=== PATIENT | female | born 1935 | race Caucasian/White ===

== ENCOUNTER 2019-01-09 10:46 | Observation (INO) | payer MEDICARE, SELFPAY ==
[2019-01-09] VITALS (48 sets, daily range): BP systolic 94–150; BP diastolic 33–94; PULSE 49–104; RESP 10–31; TEMP 36.5–36.8; O2SAT 86–99
--- NOTE | 2019-01-09 10:54 | NUR.NOTE ---
Nursing Note: pt is visiting from [place] history of dementia. ems states that PT was at a dinner in [facility] when she passed out for approximately 5-10 seconds when PT came to pt vomited several times and vomited in ambulance with EMS. ems state that vitals have been stable upon arrival BP 100/45 map 58. pt believes it is December 2017 ems states this is baseline for PT
--- NOTE | 2019-01-09 11:01 | DI.CT_ITS ---
SYMPTOM/DIAGNOSIS: SYNCOPE NONCONTRAST HEAD CT: A noncontrast cranial CT was performed. There is severe generalized cerebral atrophy. No evidence of acute intracranial hemorrhage, mass effect or midline shift. Right lacunar infarct noted. The paranasal sinuses and mastoid air cells appear clear as visualized. The orbital and temporal bone structures appear intact. CONCLUSION: No evidence of acute intracranial process.
[2019-01-09] MEDS: Normal Saline 1,000 ML 1000 ML IV (11:21)
--- NOTE | 2019-01-09 11:22 | W.ED.GENAD ---
Discharge Plan Disposition Patient Disposition: [facility] INPATIENT Condition: Fair Discharge Details Chief Complaint: Dizzy/Sync Clinical Impression: Generalized weakness, Dizziness Admit Date/Time: 01/09/19 17:00 Admit Provider: Victor Hugo Lazaro Attending Provider: Victor Hugo Lazaro Primary Care Provider: Penelope,Local ED Provider: Victor M Jaime Discharge Data Discharge Date/Time-TO BE ENTERED AT DEPARTURE: 01/09/19 18:01 Medical Decision Making Patient presenting to the emergency department for chief complaint of dizziness and near syncope. Patient was at a restaurant and stood up from the kaur to go to the restroom when she fell down. Patient remembers the event but states afterwards she felt significant amount of dizziness and nausea and vomiting. Patient denies any chest pain, headache, shortness of breath. Patient has history of dementia but is alert and oriented to person and place. Review of vital signs does show that patient is hypotensive and O2 sat of 92% but otherwise not tachycardic not febrile, not tachypneic. Physical exam shows normal cardiac exam, normal respiratory exam, cranial nerves II through XII are intact with no abnormalities noted. Assessment of HEENT does show right cerumen impaction and left ear with a foreign body that appears hair-like directly in contact with the TM. Patient has no focal weakness or neurological deficits noted. Differential diagnosis to include cardiac dysrhythmia, PE, CVA, peripheral vertigo. Plan to check EKG, labs, and CTA head. Pending results patient given IV fluids, meclizine, and Zofran was already given by EMS. Review of CT imaging with radiologist shows no acute findings except for atrophy. Labs reviewed and show some signs of dehydration so further fluids were given, nondiagnostic CBC, negative d-dimer, urinalysis with no signs of infection and blood and RBCs most likely secondary to catheterization. Patient was given additional meclizine due to continued symptoms along with feeding patient. Patient ate and had meclizine and at rest states asymptomatic but as soon as patient attempted to ambulate staffing manager state stated severely unsteady on feet. Due to this I do feel that patient needs to be admitted. ECG Data Attestation: I personally reviewed and interpreted this ECG (s) as follows: Prior ECG tracings: not available for review Interpretation: EKG reviewed with attending physician Dr. Bender and shows rate of 61, sinus rhythm, normal axis, no prolonged QT, no STEMI. HPI General Mode of arrival: EMS. Date/Time Provider Initiated Documentation: 01/09/19 10:51. Limitations to Documentation: no limitations. Information obtained by: patient, family and RN notes reviewed. History of Present Illness 83 year old F presents to the emergency department with the chief complaint of Dizziness, near syncope, Quality is described as other (Denies pain or discomfort), Patient started experiencing this hour(s) (1) and it has been intermittent. No relieving factors improve symptom(s), Other factors that worsen symptoms (Position change) . Patient notes nausea/vomiting. Patient did receive the following treatments prior to arrival, none Related Data Home Medications Medication Instructions Recorded Confirmed rivaroxaban [Xarelto] 20 mg PO DAILY 01/09/19 01/09/19 rivastigmine tartrate 1.5 mg PO BID 01/09/19 01/09/19 Allergies Allergy/AdvReac Type Severity Reaction Status Date / Time cephalexin Allergy Unverified 01/09/19 20:39 levofloxacin [From Levaquin] Allergy Unverified 01/09/19 20:39 meperidine [From Demerol] Allergy Unverified 01/09/19 20:39 naproxen [From Aleve] Allergy Unverified 01/09/19 20:39 sulfamethoxazole Allergy Unverified 01/09/19 20:39 [From Septra] trimethoprim [From Septra] Allergy Unverified 01/09/19 20:39 advair hfa Allergy Uncoded 01/09/19 20:39 General Stated Complaint: Dizzy/Sync LOWELL: 3 Review of Systems Constitutional Denies body ache(s), Denies chills, Denies fever(s) and Denies headache(s) Eyes Denies change in vision ENT Reports dizziness and Denies headache(s) Cardiovascular Denies chest pain, Denies syncope and Denies dyspnea Respiratory Denies dyspnea Gastrointestinal Reports nausea and Reports vomiting Neurologic Reports as per HPI, Reports dizziness, Denies syncope, Denies headache(s) and Denies sensory deficit PFSH Medical History Anxiety (Chronic) DVT (deep venous thrombosis) (Chronic) Dyslipidemia (Acute) Frequent falls (Acute) H/O: hysterectomy (Chronic) Hx of head injury (Acute) Left elbow pain (Acute) Memory loss (Acute) Olecranon bursitis of left elbow (Acute) Osteopenia (Acute) Stress incontinence in female (Acute) Vitamin B 12 deficiency (Acute) Vitamin D deficiency (Acute) Social History Smoking/Tobacco Use Status: Never Alcohol Intake: current Alcohol Intake frequency: holidays/special occasions only Drug use: Never Substance use type: does not use Do you feel safe at home: Yes Do you feel safe in your relationship?: Yes Exam Const General: cooperative, healthy appearing, no acute distress and well groomed Orientation: alert, awake and oriented x3 HENMT Head: normal to inspection Ears: hearing grossly normal bilaterally, TM abnormal other (Hair or foreign body present again TM) and unable to visualize TM on the right (Cerumen impaction) Mouth: oral mucosae normal, lip normal, tongue normal and moist mucous membranes Throat: posterior oropharynx normal, tonsils normal and uvula midline Eyes Visual Vieira: normal visual vieira by confrontation Alignment and Position: alignment normal Periorbital: periorbital findings normal Eyelids: eyelids normal Sclera: sclerae normal Cornea: corneas normal Pupils: PERRL EOM: EOM intact bilaterally Neck Neck: normal visual inspection, full ROM, no lymphadenopathy and no meningeal signs Resp Effort & Inspection: normal respiratory effort and able to speak in complete sentences Auscultation: clear to auscultation bilaterally Cardio Rate: regular rate Rhythm: regular rhythm Heart Sounds: S1 normal and S2 normal Neuro General: alert, awake, oriented x3, gait normal, tone normal, moves all extremities, normal light touch, pain and propioception, no focal motor deficits, CN's II-XI intact bilaterally, not confused, [place] (Slight horizontal nystagmus to the left) and other (Nondiagnostic hints exam) Cognition: normal cognition Speech: speech normal Motor: muscle tone normal throughout, no pronator drift, no movement abnormalities noted and no fasciculations Sensory Exam: no sensory deficits noted Coordination: [id number] test normal, krwc-[id number] test normal and rapid alternating movement UE normal Course Vital Signs Temperature 36.5 C 01/09/19 10:57 Pulse 66 01/09/19 10:57 Respiratory Rate 16 01/09/19 10:57 Blood Pressure 100/45 L 01/09/19 10:57 Pulse Oximetry 92 L 01/09/19 10:57 Temperature 36.5 C 01/09/19 10:57 Temperature Source Skin 01/09/19 10:57 Pulse 66 01/09/19 10:57 Respiratory Rate 16 01/09/19 10:57 Blood Pressure 100/45 L 01/09/19 10:57 Blood Pressure Position Supine 01/09/19 10:57 Pulse Oximetry 92 L 01/09/19 10:57 Oxygen Delivery Method Room Air 01/09/19 10:57 Oxygen Flow Rate 0 01/09/19 10:57 Pain Level 0 01/09/19 10:57
[2019-01-09 11:35] LABS: Abs Immature Grans 0.02 k/cumm (0.0-0.09); Absolute Basophil Count 0.01 k/cumm (0.0-0.2); Absolute Eosinophil Count 0.06 k/cumm (0.0-0.7); Absolute Lymphocyte Count 0.65 k/cumm (1.2-3.4); Absolute Monocyte Count 0.43 k/cumm (0.11-0.7); Basophils % 0.2; Eosinophils % 1.5; HCT 37.2 % (36.0-46.0); HGB 12.1 g/dL (12.0-15.5); Immature Grans % 0.5; Mean Corp. HGB Concentration 32.5 g/dL (32.0-36.0); Mean Corpuscular Hemoglobin 30.6 pg (27.0-33.0); Mean Corpuscular Volume 93.9 fL (80-95); Mean Platelet Volume 10.3 fL (8.0-11.0); Monocytes % 10.6; Neutrophils % 71.2; Platelet Count 172 x1000/uL (130-400); RBC 3.96 m/cumm (4.00-5.20); RBC Distribution Width 13.2 % (11.7-14.6); White Blood Cell Count 4.07 k/cumm (4.4-10.8)
[2019-01-09] MEDS: Ondansetron O.D.T. 4 MG TABEF PO (11:40)
[2019-01-09 11:55] LABS: ALT 17 U/L (12-78); AST 16 U/L (15-37); Albumin 2.9 g/dL (3.4-5.0); Alkaline Phosphatase 63 U/L (46-116); Anion Gap 11.4 mmol/L (3-11); BUN 28 mg/dL (7-18); Bilirubin, Total 0.3 mg/dL (0.2-1.0); CO2 25.6 mmol/L (21.0-32.0); CREATININE 0.94 mg/dL (0.55-1.02); Calcium 8.6 mg/dL (8.5-10.1); Chloride 103 mmol/L (98-107); Estimated GFR 57.01 (mL/min/1.73m2); Glucose 174 mg/dL (70-100); Magnesium 1.9 mg/dL (1.8-2.4); Potassium 3.8 mmol/L (3.5-5.1); Sodium 140 mmol/L (136-145); Total Protein 6.1 g/dL (6.4-8.2)
[2019-01-09 11:56] LABS: Troponin I < 0.05 ng/mL (0.00-0.06)
[2019-01-09 12:05] LABS: D-Dimer 437 ng/mlFEU (<500)
[2019-01-09] MEDS: Meclizine 12.5 MG TAB PO ×2 (12:15→14:25)
--- NOTE | 2019-01-09 13:05 | NUR.NOTE ---
Nursing Note: ears flushed with 700 cc NS large deposit of ear wax removed from light ear and several small deposits of ear was as well as hair from left ear. large 3 sm chunk on right ear removed. earwax was black and hard to the point it clinked when dropped on a metal tray
--- NOTE | 2019-01-09 14:45 | NUR.NOTE ---
Nursing Note: pt tolerated straight catheterization well. 300 mL clear yellow urine drained. pt set up for lunch
[2019-01-09 14:50] LABS: Bilirubin Negative (Negative); Blood Trace-intact (Negative); Clarity Clear (Clear); Glucose Negative (Negative); Ketones Trace mg/dL (Negative); Leukocyte Esterase Negative (Negative); Nitrite Negative (Negative); Specific Gravity 1.025 (1.005-1.025); Urobilinogen 0.2 EU/dL (Up TO 0.2); pH 5.5 (5-8)
[2019-01-09 15:06] LABS: WBC 0-2 HPF (0-5)
[2019-01-09 15:07] LABS: Bacteria Negative HPF (Negative); Crystals Negative HPF (Negative); Epithelial Cells Negative HPF (Negative); Mucus Moderate (Negative)
[2019-01-09 15:08] LABS: C & S Indicated? No; Casts 5-10 Hyaline LPF (Negative)
[2019-01-09 16:25] LABS: Troponin I < 0.05 ng/mL (0.00-0.06)
--- NOTE | 2019-01-09 18:23 | NUR.NOTE ---
Nursing Note: at 1400 was informed that would most likely be staying overnight at [facility] or or another facility however at the current time we could not give a confidant answer as to weather or not it would be our facility or a deferent one. at time plan was made for PT being admitted to [facility] of PT was missing RN made several attempts to contact and aske PT several times for information on anyone to contact to inform that PT would be admitted to [facility] RN was unable to make contact. ED secretary administrative assistant was asked to attempt to make contact secretary administrative assistant was unable to make contact with family members of PT waiting room was searched for of PT unable to local attempts were made to reach for approximately 3 hrs. medical floor charge Pattie peterson was notified of current situation and inability to reach spouse or family members. rn will continue to make attempt to contact family post discharge of PT
--- NOTE | 2019-01-09 18:32 | NUR.NOTE ---
Nursing Note: number on PTs chart [phone] was contacted 10 times to attempt to reach family member this is the number in the patients chart under family member this is also listed as the patients home number pt was asked several times if she knew any one elses number PT was unable to provide any numbers ED paralegal legal secretary will continue to attempt to contact this number
[2019-01-09] MEDS: Normal Saline 1,000 ML 75 ML IV (18:50)
--- NOTE | 2019-01-09 18:53 | W.PM.HP.N ---
Date of service: 01/09/19 Time of Service: 18:53 Assessment and Plan (1) Fall: Current visit: Yes Status: Acute Reportedly fell at restaurant when getting up to use the bathroom. She does not recall the events. She does not have any family present. It is unclear if this was a near syncopal event. Her ER note indicates that she had some nausea and vomiting. Differential diagnoses include vertigo, dehydration, CVA/TIA, versus other. She had a head CT that did not show an acute process. Physical therapy has been consulted to assess for vertigo and her risk for falls. Assess lipid panel in the morning. Continue to monitor. Consider further testing for CVA/TIA. Monitor on telemetry for cardiac arrhythmia. Nursing to obtain orthostatic vital signs. Assess cerumen impaction and possible need for irrigation. Consult PT to assess for vertigo and assess need for ambulatory devices. (2) DVT prophylaxis: Current visit: Yes Status: Acute Continue home Xarelto, as she has had a DVT in the past. (3) Discharge planning issues: Current visit: Yes Status: Acute She is a full code. Nursing is working on obtaining notes from her primary care provider as she is not from the area, she lives in [place]. She is visiting her son at [facility]. This case was discussed with Dr. Lazaro he was in agreement. History of Present Illness Chief Complaint: Syncopal episode Narrative: Sveta Valle is an 83 year old female with a past medical history significant for dementia and DVT on xarelto. She reportedly was eating at a restaurant today when she got up and fell to the ground. She was reportedly dizzy with nausea and vomiting. In the ED, she was found to be hypotensive and had an oxygen saturation of 92% on room air. She was found on exam to have a cerumen impaction of the left ear. She had no focal neurological deficits. She had a CT head which showed no acute abnormality. She appeared mildly dehydrated by labs with an elevated BUN of 28, creatinine of 0.94. She was given IV fluids. Her CBC was unremarkable, negative d-dimer, urinalysis not suspicious for infection. She was given meclizine with improvement of her symptoms at rest, however, when she attempted to ambulate, she was very unsteady. She is admitted to the floor for further evaluation and management. The patient has dementia and is able to state where she is, the date and her date and name, however, she was concerned about her not being able to find her due to moving to a different hospital after he left. She is a poor historian. She is not able to give a clear history. She denies current dizziness, headaches, chest pain/pressure, palpitations, shortness of breath, coughing, wheezing, nausea, vomiting, diarrhea, constipation. She reports eating and drinking normally today, however, she denies that she went out to a restaurant today even though her family reported that she fell at a restaurant. She denies any dysuria or hematuria. She first stated that she does not take any regular medications, however, with prompting, she was able to state that she takes 2 different medications. According to records, she takes Xarelto and Rivastigmine. Review of Systems Review of Systems All systems reviewed & are unremarkable except as noted in HPI and below PFSH Medical History Anxiety (Chronic) DVT (deep venous thrombosis) (Chronic) Dyslipidemia (Acute) Frequent falls (Acute) H/O: hysterectomy (Chronic) Hx of head injury (Acute) Left elbow pain (Acute) Memory loss (Acute) Olecranon bursitis of left elbow (Acute) Osteopenia (Acute) Stress incontinence in female (Acute) Vitamin B 12 deficiency (Acute) Vitamin D deficiency (Acute) Social History Smoking/Tobacco Use Status: Never Alcohol Intake: current Alcohol Intake frequency: holidays/special occasions only Drug use: Never Substance use type: does not use Do you feel safe at home: Yes Do you feel safe in your relationship?: Yes Meds Home Medications Medication Instructions Recorded Confirmed Type rivaroxaban [Xarelto] 20 mg PO DAILY 01/09/19 01/09/19 History rivastigmine tartrate 1.5 mg PO BID 01/09/19 01/09/19 History Allergies Allergy/AdvReac Type Severity Reaction Status Date / Time cephalexin Allergy Unverified 01/09/19 20:39 levofloxacin [From Levaquin] Allergy Unverified 01/09/19 20:39 meperidine [From Demerol] Allergy Unverified 01/09/19 20:39 naproxen [From Aleve] Allergy Unverified 01/09/19 20:39 sulfamethoxazole Allergy Unverified 01/09/19 20:39 [From Septra] trimethoprim [From Septra] Allergy Unverified 01/09/19 20:39 advair hfa Allergy Uncoded 01/09/19 20:39 Exam Narrative Exam Narrative: General: Elderly female, appears stated age, alert and oriented x3, forgetful and poor historian. HEENT: Normocephalic, atraumatic, pupils equal round reactive to light, extraocular movements intact, mucous membranes moist. Neurological: Nonfocal. Neck: Supple, no JVD. Cardiovascular: Heart has regular rate and rhythm, no murmur appreciated. Respiratory: Respirations even and unlabored, lung sounds with rales to right base, no wheezing. GI: Normoactive bowel sounds x4 quadrants, abdomen soft, nondistended, nontender on palpation. Extremities: Scattered bruising on bilateral lower extremities, no clubbing, cyanosis or edema. No calf swelling or tenderness. Pedal pulses palpable bilaterally. Moves all 4 extremities equally. Results Labs : 01/10/19 06:30 01/10/19 06:30 Laboratory Results - last 24 hr 01/09/19 01/09/19 01/09/19 11:20 11:20 11:20 WBC 4.07 L RBC 3.96 L Hgb 12.1 Hct 37.2 MCV 93.9 MCH 30.6 MCHC 32.5 RDW 13.2 Plt Count 172 MPV 10.3 Immature Gran % 0.5 Neutrophils % 71.2 Lymphocytes % 16.0 Monocytes % 10.6 Eosinophils % 1.5 Basophils % 0.2 Absolute Neutrophils 2.90 Absolute Lymphocytes 0.65 L Absolute Monocytes 0.43 Absolute Eosinophils 0.06 Absolute Basophils 0.01 D-Dimer 437 Sodium 140 Potassium 3.8 Chloride 103 Carbon Dioxide 25.6 Anion Gap 11.4 H BUN 28 H Creatinine 0.94 Estimated GFR/1.73 m2 57.01 Glucose 174 H Calcium 8.6 Magnesium 1.9 Total Bilirubin 0.3 AST 16 ALT 17 Alkaline Phosphatase 63 Troponin I < 0.05 Total Protein 6.1 L Albumin 2.9 L Urine Color Urine Clarity Urine pH Ur Specific [place] Urine Protein Urine Ketones Urine Blood Urine Nitrite Urine Bilirubin Urine Urobilinogen Ur Leukocyte Esterase Urine RBC Urine WBC Ur Epithelial Cells Urine Crystals Urine Bacteria Urine Casts Urine Mucus Ur Culture Indicated? Urine Glucose 01/09/19 01/09/19 14:39 15:50 WBC RBC Hgb Hct MCV MCH MCHC RDW Plt Count MPV Immature Gran % Neutrophils % Lymphocytes % Monocytes % Eosinophils % Basophils % Absolute Neutrophils Absolute Lymphocytes Absolute Monocytes Absolute Eosinophils Absolute Basophils D-Dimer Sodium Potassium Chloride Carbon Dioxide Anion Gap BUN Creatinine Estimated GFR/1.73 m2 Glucose Calcium Magnesium Total Bilirubin AST ALT Alkaline Phosphatase Troponin I < 0.05 Total Protein Albumin Urine Color Yellow Urine Clarity Clear Urine pH 5.5 Ur Specific [place] 1.025 Urine Protein Negative Urine Ketones Trace H Urine Blood Trace-intact H Urine Nitrite Negative Urine Bilirubin Negative Urine Urobilinogen 0.2 Ur Leukocyte Esterase Negative Urine RBC 3-5 H Urine WBC 0-2 Ur Epithelial Cells Negative Urine Crystals Negative Urine Bacteria Negative Urine Casts 5-10 hyaline Urine Mucus Moderate Ur Culture Indicated? No Urine Glucose Negative Last Vital Signs Temp 36.8 C 01/09/19 18:20 Pulse 97 H 01/09/19 18:20 Resp 17 01/09/19 18:20 BP 147/64 H 01/09/19 18:20 Pulse Ox 97 01/09/19 18:20
[2019-01-09] MEDS: Rivastigmine 1.5 MG CAP PO (22:14)
--- NOTE | 2019-01-09 23:17 | DI.RAD_ITS ---
SYMPTOM/DIAGNOSIS: RALES ON EXAM, SYNCOPAL EPISODE AP AND LATERAL CHEST: The heart is not enlarged. There appear to be changes of COPD and pulmonary scarring. No acute consolidation is seen. No evidence of CHF. No pleural effusion. CONCLUSION: No evidence of acute disease.
--- NOTE | 2019-01-09 23:49 | DI.VRAD_ITS ---
EXAM: XR Chest, 2 Views EXAM DATE/TIME: 01/09/2019 6:56 PM CLINICAL HISTORY: 83 years old, female; Other: Rales, syncope TECHNIQUE: Imaging protocol: XR of the chest, 2 views. COMPARISON: No relevant prior studies available. FINDINGS: Lungs: Unremarkable. No consolidation. Pleural space: Unremarkable. No pleural effusion. No pneumothorax. Heart/Mediastinum: Unremarkable. No cardiomegaly. Bones/joints: Unremarkable. IMPRESSION: No acute findings. Dictated and Authenticated by: Alexandru Lima MD. Ordering:DOROTA Kang MD
[2019-01-10] VITALS (54 sets, daily range): BP systolic 108–159; BP diastolic 53–70; PULSE 49–119; RESP 9–22; TEMP 35.4–36.7; O2SAT 83–99
[2019-01-10 06:46] LABS: Abs Immature Grans 0.01 k/cumm (0.0-0.09); Absolute Basophil Count 0.02 k/cumm (0.0-0.2); Absolute Eosinophil Count 0.11 k/cumm (0.0-0.7); Absolute Lymphocyte Count 0.88 k/cumm (1.2-3.4); Absolute Monocyte Count 0.41 k/cumm (0.11-0.7); Absolute Neutrophil Count 1.77 k/cumm (1.2-6.7); Basophils % 0.6; Eosinophils % 3.4; HCT 37.7 % (36.0-46.0); Immature Grans % 0.3; Lymphocytes % 27.5; Mean Corp. HGB Concentration 31.8 g/dL (32.0-36.0); Mean Corpuscular Hemoglobin 30.1 pg (27.0-33.0); Mean Corpuscular Volume 94.5 fL (80-95); Mean Platelet Volume 10.1 fL (8.0-11.0); Monocytes % 12.8; Neutrophils % 55.4; Platelet Count 165 x1000/uL (130-400); RBC 3.99 m/cumm (4.00-5.20); RBC Distribution Width 13.4 % (11.7-14.6)
[2019-01-10 07:13] LABS: Anion Gap 5.3 mmol/L (3-11); BUN 18 mg/dL (7-18); CO2 28.7 mmol/L (21.0-32.0); CREATININE 0.82 mg/dL (0.55-1.02); Calcium 8.5 mg/dL (8.5-10.1); Calculated LDL 108 mg/dL; Chloride 108 mmol/L (98-107); Cholesterol 197 mg/dL (50-200); Glucose 87 mg/dL (70-100); HDL Cholesterol 81 mg/dL (40-60); Magnesium 1.9 mg/dL (1.8-2.4); Potassium 4.1 mmol/L (3.5-5.1); Sodium 142 mmol/L (136-145); TSH 1.95 uIU/mL (0.36-3.74); Triglyceride 43 mg/dL (30-150)
[2019-01-10] MEDS: Normal Saline 1,000 ML 75 ML IV (09:17)
[2019-01-10] MEDS: Rivastigmine 1.5 MG CAP PO (09:17)
[2019-01-10] MEDS: Rivaroxaban 10 MG TABLET 20 MG PO (09:55)
--- NOTE | 2019-01-10 09:58 | INITIAL_ITS ---
- If Service Date Differs Date of service: 01/10/19 Time of Service: 09:58 Care Management Initial Assess REASON FOR HOSPITALIZATION:: Fall PAST MEDICAL HISTORY/PAST SURGICAL HISTORY:: Medical History: Anxiety (Chronic). DVT (deep venous thrombosis) (Chronic). Dyslipidemia (Acute). Frequent falls (Acute). H/O: hysterectomy (Chronic). Hx of head injury (Acute). Left elbow pain (Acute). Memory loss (Acute). Olecranon bursitis of left elbow (Acute). Osteopenia (Acute). Stress incontinence in female (Acute). Vitamin B 12 deficiency (Acute). Vitamin D deficiency (Acute) PREVIOUS FUNCTIONAL STATUS/SOCIAL/FAMILY SUPPORTS:: Sveta lives with her Tyrone in [place] in a single family home. They are spending the month january with family at [facility]. She is independent with all care and activities. CURRENT FUNCTIONAL STATUS:: Sveta was completing her PT session when CM came to see her. She was using a cane which she will use at home. She is pleasant and readily interacted with CM. She will be discharged this afternoon. ADVANCE DIRECTIVES:: None on file Has patient been provided with information about the portal?: No Did the patient sign up for the portal?: No CODE STATUS:: Full Code INSURANCE COVERAGE / FINANCIAL ISSUES:: Medicare. AARP PRIMARY CARE PHYSICIAN:: In [place] POTENTIAL DISCHARGE NEEDS:: Follow up with PCP at home in [place] PATIENT/FAMILY EDUCATION NEEDS:: Discharge plan, limitations, follow up plan, Ask Me Three. TRANSPORTATION:: via private vehicle with family PLAN:: Sveta will be discharged home with family this afternoon. She will receive new PT and OT and will be followed by Dr. Kent in the community while she is in [place]. Her will transport via private vehicle.
--- NOTE | 2019-01-10 12:30 | PT.INIE ---
Date of service: 01/10/19 Time of Service: 11:43 PT Notes Inpatient Physical Therapy Evaluation Date: 01/10/2019 Referring Doctor: Pearl Alfonso NP PT Orders: PT CONSULT: Unsteady, evaluate for vertigo, dementia Precautions: Fall. Standard. Patient Profile/Admitting Diagnosis: Patient is an 83-year-old female who presented to the ED on 01/09/2019 with dizziness with chief complaints of dizziness, nausea, and vomiting. Patient reportedly fell while standing up from a chair to go to the bathroom at a restaurant. CT scan of the head was negative for acute abnormality. Medical History Anxiety (Chronic) DVT (deep venous thrombosis) (Chronic) Dyslipidemia (Acute) Frequent falls (Acute) H/O: hysterectomy (Chronic) Hx of head injury (Acute) Left elbow pain (Acute) Memory loss (Acute) Olecranon bursitis of left elbow (Acute) Osteopenia (Acute) Stress incontinence in female (Acute) Vitamin B 12 deficiency (Acute) Vitamin D deficiency (Acute) Social History/Home Situation: Patient is and are residents of the [facility] and have been here for the past 2 on vacation. They hope to stay in their camper for the next 2 weeks more. Patient was independent with all aspects of ADLs. With that the need for an assistive ambulatory device nor adaptive equipment. does elaborate that for long distance ambulation had needed to use a cane. Current Functional Limitations: Need for an assistive ambulatory device for all transfer and ambulation task performance to reduce fall risk Equipment Owned/DME: [facility], S[facility]. Subjective: Patient is agreeable to a PT consult and treatment today. She is pleasant and is cooperative. came in towards the middle of the evaluation time. They both are hopeful about going home today and are agreeable with home health physical therapy services continuing strengthening and balance retraining. Patient and expressed their understanding of the importance of using the SPC for all her transfer and ambulation activities in order to reduce fall risk. Objective: General Observation: Patient seen resting in bed with nurse assigned taking patient's blood pressure. Bilateral knee-high TEDS seen. Skin contusions noted on bilateral upper extremity and lower extremity from chronic anticoagulation Mental Status: Alert and oriented as to person and place Pain: Patient reported mild pain on the neck and back with the Aspen-Hallpike maneuver which both subsided with resumption of long sitting position. ROM: Right Upper Extremity: Shoulder Flexion WFL. Shoulder abduction WFL. Elbow flexion WFL. Wrist flexion WFL. Functional opening and closing of hand WFL. Left Upper Extremity: Shoulder Flexion WFL. Shoulder abduction WFL. Elbow flexion WFL. Wrist flexion WFL. Functional opening and closing of hand WFL. Right Lower Extremity: Hip flexion WFL. Hip abduction WFL. Knee flexion WFL. Ankle dorsiflexion WFL. Ankle plantarflexion WFL. Left Lower Extremity: Hip flexion WFL. Hip abduction WFL. Knee flexion WFL. Ankle dorsiflexion WFL. Ankle plantarflexion WFL. Strength: Right Upper Extremity: Shoulder flexors 4/5. Shoulder abductors 4/5. Elbow flexors 4/5. Elbow extensors 4/5. [employer] strong. Left Upper Extremity: Shoulder flexors 4/5. Shoulder abductors 4/5. Elbow flexors 4/5. Elbow extensors 4/5. [employer] strong. Right Lower Extremity: Hip flexors 4-/5. Hip abductors 4-/5. Knee flexors 4-/5. Knee extensors 4-/5. Ankle dorsiflexors 4-/5. Ankle plantarflexors 4-/5. Left Lower Extremity:Hip flexors 4-/5. Hip abductors 4-/5. Knee flexors 4-/5. Knee extensors 4-/5. Ankle dorsiflexors 4-/5. Ankle plantarflexors 4-/5. Sensation: Intact as to pain and pressure on bilateral lower extremities. Bed Mobility/Transfers: Rolling independent Supine to sit independent Sit to supine independent Sit to stand independent Stand to sit independent Bed to chair supervision Chair to bed supervision Gait: Patient was able to tolerate level surface ambulation using a single-point cane for 120 feet with only supervision assist from this PT and with no loss of balance nor complaints of headache, chest pain, nausea, dizziness, and lightheadedness. Balance: Static Sitting: Normal Dynamic Sitting: Normal Static Standing: Good Dynamic Standing: Fair BPPV TESTING: No involuntary eye movements/nystagmus elicited during Aspen-Hallpike maneuver on both sides. Patient did not report any nausea, dry heaving, dizziness, nor lightheadedness during the procedure. She did complain of mild pain on the neck and the back that quickly resolved with resumption of the long sitting position. Vertebral artery test negative. Vestibulo-ocular reflex intact. 4-Stage Balance Test: Patient was able to sustain standing with feet together for 10 seconds but was unable to do so with semi-tandem, for tandem, and one-legged standing which places patient at high risk for falls at this time without the use of an assistive ambulatory device. Tinetti Balance Test produced a score of 19/28 for the patient which signifies high fall risk and would therefore require the use of an assistive ambulatory device. Special Tests: Mobility Limitations Standardized Measure [facility] AM-PAC 6 clicks Basic Mobility Inpatient Short Form: Raw Score: 22 CMS Score: 21% deficit Informed Consent/Education: Patient instructed in purpose of PT consult and plan of care. Patient and was also advised regarding the benefit of continuing with home health physical therapy services in order to assess home safety, continue with strengthening, balance retraining as well as fall reduction strategies Assessment: Patient presents with clinical signs and symptoms consistent with current/admitting diagnoses that have resulted to mobility limitations, gait instability, generalized weakness, and impairment of motor control as demonstrated by the following impairment level findings: 1. Decreased strength to B LE major muscle groups 2. Impaired standing balance 3. Impaired activity tolerance Impairments are contributing to the following functional limitations: 1. Increased dependence with transfers 2. Inability to safely ambulate without assistive device and physical assistance 3. Increase completion time for mobility ADL performance 4. Increased fall risk 5. Inability to negotiate steps alone safely Patient is assessed as a 62913 moderate complexity based on the following: History: Patient is an 83-year-old female with past medical history significant for frequent falls, dyslipidemia, memory loss, and osteopenia Examination: Demonstrable impairment in strength, balance, and range of motion with underlying impairments and functional limitations as documented above Presentation:Evolving Decision Makin moderate complexity Goals: Patient goes home on day of evaluation with recommendation as indicated below. Plan of Care/Treatment Plan: Patient goes home on day of evaluation with recommendation as indicated below. DISCHARGE RECOMMENDATIONS: Patient will benefit from home health PT services in order to progress mobility level using least restrictive assistive ambulatory device/using no device, assess home safety, identify additional equipment needs, and establish a functional maintenance program that will increase ability of patient to remain at home. TREATMENT CODE/TIME: 36502 x30 minutes, 44634 x 25 minutes beginning at 11:43 AM Thank you very much for this referral. Sandra Tejada PT, DPT, CLT [facility]
--- NOTE | 2019-01-10 13:40 | W.PM.DS.N ---
Date of service: 01/10/19 Time of Service: 13:40 DS: Diagnosis Discharge Diagnosis (1) Fall: Status: Acute Discharge Plan Disposition Patient Disposition: HOME W/HOME HEALTH SERVICE Condition: Good Discharge Details Chief Complaint: Dizzy/Sync Clinical Impression: Generalized weakness, Dizziness Reason For Visit: DIZZINESS, GENERALIZED WEAKNESS Admit Date/Time: 01/09/19 17:00 Admit Provider: Victor Hugo Lazaro Attending Provider: Victor Hugo Lazaro [facility]: Victor M [facility] Course Hospital Course: Sveta Valle is an 83 year old female with a past medical history significant for dementia and DVT on xarelto. She reportedly was eating at a restaurant with her family yesterday when she got up and fell to the ground. She was reportedly dizzy with nausea and vomiting. In the ED, she was found to be hypotensive and had an oxygen saturation of 92% on room air. She was found on exam to have a cerumen impaction of the left ear. She had no focal neurological deficits. She had a CT head which showed no acute abnormality. She appeared mildly dehydrated by labs with an elevated BUN of 28, creatinine of 0.94. She was given IV fluids. Her CBC was unremarkable, negative d-dimer, urinalysis not suspicious for infection. She was given meclizine with improvement of her symptoms at rest, however, when she attempted to ambulate, she was very unsteady. She was admitted to the floor for further evaluation and management. She received gentle IV fluid hydration overnight. She was on court recording monitor overnight and remained in normal sinus rhythm. Her orthostatic vital signs were normal. Her neurological exam was nonfocal. She had no further episodes of dizziness or lightheadedness. She has dementia and was able to accurately state person, place and time, however, she did not recall the events that lead to her hospitalization and was not clear on circumstances. She denied headache, chest pain/pressure, palpitations, shortness of breath, coughing or wheezing. She was eating and drinking and tolerating her diet. She worked with PT who recommended that she ambulate with a cane. Her states she has a cane and he will make sure she uses it after discharge. They are staying with their son in [place] for 2 more weeks. She will have home health PT/OT while she is at her son's home. She will continue PT after returning to [place]. She is discharged home. She will follow up with her PCP when she returns to [place]. She will return to the ED as needed. Home Meds and New Rx's Prescriptions: Continued rivastigmine tartrate 1.5 mg Capsule 1.5 mg PO BID RF: 0 Xarelto 20 mg Tablet 20 mg PO DAILY RF: 0 Discharge Instructions Instructions: Dehydration (DC) Additional Instructions: Drink plenty of fluids. Use cane when walking. Follow up with your PCP when you return to [place]. If you need a follow up appointment before returning to [place], you may contact [facility] (Dr. Kent). Home health PT will work with you until you return to [place]. Return to the ED as needed. Take care! Activity:: Activity as Tolerated Equipment/Supplies:: No Equipment Needed Diet:: As Tolerated Discharge Orders Discharge Orders: Discharge Order (Routine); Ordered 01/10/19 Ordered By: Pearl Alfonso Exam Narrative Exam Narrative: General: Elderly female, appears stated age, sitting up in chair, alert and oriented x3, but clearly forgetful and poor historian. HEENT: Normocephalic, atraumatic, pupils equal round reactive to light, extraocular movements intact, mucous membranes moist. Neurological: Nonfocal. Neck: Supple, no JVD. Cardiovascular: Heart has regular rate and rhythm, no murmur appreciated. Respiratory: Respirations even and unlabored, lung sounds clear bilaterally. GI: Normoactive bowel sounds x4 quadrants, abdomen soft, nondistended, nontender on palpation. Extremities: Scattered bruising on bilateral lower extremities, no clubbing, cyanosis or edema. No calf swelling or tenderness. Pedal pulses palpable bilaterally. Moves all 4 extremities equally. DS: Data Vitals/I&O Vitals and I&O: Vital Signs Temperature 36.0 C L 01/10/19 09:12 Temperature Source Temporal Artery Scan 01/10/19 09:12 Pulse 68 01/10/19 09:12 Pulse Rhythm Regular 01/10/19 08:45 Pulse 89 01/09/19 14:01 Respiratory Rate 11 L 01/10/19 04:26 Respiratory Effort 01/10/19 08:45 Respiratory Depth Normal 01/10/19 08:45 Respiratory Pattern Normal 01/10/19 08:45 Blood Pressure 151/53 H 01/10/19 09:12 Blood Pressure Mean 86 01/10/19 04:26 Blood Pressure Position Supine 01/10/19 04:26 Pulse Oximetry 98 01/10/19 04:26 Oxygen Delivery Method Room Air 01/10/19 04:26 Oxygen Flow Rate 0 01/10/19 04:26 Pain Level 0 01/09/19 18:20 Intake & Output 01/09/19 01/10/19 01/10/19 23:59 11:59 23:59 Intake Total 1000 / 1000 1240 / 1480 240 / 1480 Output Total 900 / 900 Balance 1000 / 1000 340 / 580 240 / 580 Weight 61.6 kg 61.6 kg Intake: IV 1000 / 1000 1000 / 1000 Oral 240 / 480 240 / 480 Output: Urine 900 / 900 Other: Urine Color Pale Yellow Urine Appearance Clear Urine Odor None Comment Patient missed hat Voiding Methods Bedside Commode Completed studies during hospitalization [Text1]: 01/10/19: NONCONTRAST HEAD CT: A noncontrast cranial CT was performed. There is severe generalized cerebral atrophy. No evidence of acute intracranial hemorrhage, mass effect or midline shift. Right lacunar infarct noted. The paranasal sinuses and mastoid air cells appear clear as visualized. The orbital and temporal bone structures appear intact. CONCLUSION: No evidence of acute intracranial process. AP AND LATERAL CHEST: The heart is not enlarged. There appear to be changes of COPD and pulmonary scarring. No acute consolidation is seen. No evidence of CHF. No pleural effusion. CONCLUSION: No evidence of acute disease. Labs on day of discharge: Labs from last 24 hours 01/10/19 01/10/19 01/10/19 06:30 06:30 05:35 WBC 3.20 L RBC 3.99 L Hgb 12.0 Hct 37.7 MCV 94.5 MCH 30.1 MCHC 31.8 L RDW 13.4 Plt Count 165 MPV 10.1 Immature Gran % 0.3 Neutrophils % 55.4 Lymphocytes % 27.5 Monocytes % 12.8 Eosinophils % 3.4 Basophils % 0.6 Absolute Neutrophils 1.77 Absolute Lymphocytes 0.88 L Absolute Monocytes 0.41 Absolute Eosinophils 0.11 Absolute Basophils 0.02 Sodium 142 Cancelled Potassium 4.1 Cancelled Chloride 108 H Cancelled Carbon Dioxide 28.7 Cancelled Anion Gap 5.3 Cancelled BUN 18 D Cancelled Creatinine 0.82 Cancelled Estimated GFR/1.73 m2 >= 60.00 Cancelled Glucose 87 D Cancelled Calcium 8.5 Cancelled Magnesium 1.9 Troponin I Triglycerides 43 Total Cholesterol 197 LDL Cholesterol, Calc 108 HDL Cholesterol 81 H TSH 1.95 Urine Color Urine Clarity Urine pH Ur Specific Drummonds Urine Protein Urine Ketones Urine Blood Urine Nitrite Urine Bilirubin Urine Urobilinogen Ur Leukocyte Esterase Urine RBC Urine WBC Ur Epithelial Cells Urine Crystals Urine Bacteria Urine Casts Urine Mucus Ur Culture Indicated? Urine Glucose 01/09/19 01/09/19 15:50 14:39 WBC RBC Hgb Hct MCV MCH MCHC RDW Plt Count MPV Immature Gran % Neutrophils % Lymphocytes % Monocytes % Eosinophils % Basophils % Absolute Neutrophils Absolute Lymphocytes Absolute Monocytes Absolute Eosinophils Absolute Basophils Sodium Potassium Chloride Carbon Dioxide Anion Gap BUN Creatinine Estimated GFR/1.73 m2 Glucose Calcium Magnesium Troponin I < 0.05 Triglycerides Total Cholesterol LDL Cholesterol, Calc HDL Cholesterol TSH Urine Color Yellow Urine Clarity Clear Urine pH 5.5 Ur Specific Drummonds 1.025 Urine Protein Negative Urine Ketones Trace H Urine Blood Trace-intact H Urine Nitrite Negative Urine Bilirubin Negative Urine Urobilinogen 0.2 Ur Leukocyte Esterase Negative Urine RBC 3-5 H Urine WBC 0-2 Ur Epithelial Cells Negative Urine Crystals Negative Urine Bacteria Negative Urine Casts 5-10 hyaline Urine Mucus Moderate Ur Culture Indicated? No Urine Glucose Negative [facility] Medical History Anxiety (Chronic) DVT (deep venous thrombosis) (Chronic) Dyslipidemia (Acute) Frequent falls (Acute) H/O: hysterectomy (Chronic) Hx of head injury (Acute) Left elbow pain (Acute) Memory loss (Acute) Olecranon bursitis of left elbow (Acute) Osteopenia (Acute) Stress incontinence in female (Acute) Vitamin B 12 deficiency (Acute) Vitamin D deficiency (Acute) Social History Smoking/Tobacco Use Status: Never Alcohol Intake: current Alcohol Intake frequency: holidays/special occasions only Drug use: Never Substance use type: does not use Do you feel safe at home: Yes Do you feel safe in your relationship?: Yes
--- NOTE | 2019-01-10 14:01 | HHF2F_ITS ---
1. Encounter Date and Reason I certify that SAKINA INTERIANO was seen by Pearl Alfonso on 01/10/19 and that I had a [id number] encounter with this patient that meets the physician face to face encounter requirements. 2. Clinical Findings Supporting Skilled Need and Homebound Status I certify that home health services are medically necessary, include either intermittent nursing home and/or physical/speech therapy, and that this patient is homebound in that absences from the home require considerable and taxing effort and are infrequent or of short duration, or are attributable to the need to receive medical care. [X] (a) Attached documentation from encounter provides clinical findings supporting skilled need and homebound status (including what assistance patient requires to leave the home). The encounter with the patient was in whole, or in part, for the following medical condition, which is the primary reason for home health care: DIZZINESS, GENERALIZED WEAKNESS, dehydration, dementia Half-Way: Physical Therapy: Needed to continue to work on safe use of assistive devices, balance, strength and endurance after hospitalization. OT: needed to evaluate ability to preform ADL/IADLs and make recommendations as needed. Speech Therapy: Homebound: Unable to leave home without assistance. 3. Certification and Authentication I certify that I composed the above information based on my clinical judgement relating to this patient's medical condition and, if applicable, clinical findings communicated to me by the NPP or inpatient physician who performed the Home Health Referral. All further orders will be obtained through Dr. Kent (Community Based Physician - PCP)
== END 2019-01-10 14:40 | disposition home health service (06) ==
LOC: ER 17:02 → MS 18:06 → ICU 01-10 04:17
PROVIDERS: Nurse Practitioner; Admitting Provider Internal Medicine; Emergency Provider Nurse Practitioner Family; Visit Provider Internal Medicine
DX: Z04.3 Encounter for examination and observation following other accident (principal); I95.9 Hypotension, unspecified; R26.81 Unsteadiness on feet; W19.XXXA Unspecified fall, initial encounter; H61.22 Impacted cerumen, left ear; F03.90 Unspecified dementia, unspecified severity, without behavioral disturbance, psychotic disturbance, mood disturbance, and anxiety; Z79.01 Long term (current) use of anticoagulants; Z86.718 Personal history of other venous thrombosis and embolism; R29.6 Repeated falls
CPT/HCPCS: 36415; 80048; 80053; 80061; 83721; 93005; 96360; 96361; 97162; 97530; 99219; 99239; 99285; 70450; 71046; 81003; 81015; 83735; 84443; 84484; 85025; 85379; 93010; 99217; G0378; J3490